=== PATIENT | female | born 1985 | race Caucasian/White ===

== ENCOUNTER 2017-09-24 19:34 | Emergency (ER) | payer SELFPAY ==
[2017-09-24] MEDS ORDERED: Clindamycin HCl 150 MG Cap PO ONE (20:39)
[2017-09-24] MEDS ORDERED: Clindamycin HCl 150 MG Cap ONE (20:39)
--- NOTE | 2017-09-24 20:42 | EDM.PDOC ---
ED HPI GENERAL MEDICAL PROBLEM - General Chief Complaint: Bite:Animal, Insect Stated Complaint: bug bite Time Seen by Provider: 09/24/17 19:45 Source of Information: Reports: Patient History Limitations: Reports: Altered Mental Status - History of Present Illness INITIAL COMMENTS - FREE TEXT/NARRATIVE: 32-year-old female presents to the emergency room with a bug bite or boil that had occurred just under her right breast. Patient states that she has had this for a couple days it was very painful and opened today. She reports the pain now seems to be better now that it is opened. She thinks this may have been a bug bite. She has no other complaints. She denies any fever, chills, shortness of breath or chest pain. Past medical history significant for bipolar disorder she takes Depakote for this. She has moved recently from [place] to live with her sister who has lived in [place] for about 3 years. She is somewhat a poor historian as she seems to be having flights of ideas. 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 She has smoked marijuana in the past but denies any current use of illicit drugs. Onset: Gradual Onset Date: 08/31/17 Duration: Day(s): Location: Reports: Chest Severity: Mild Improves with: Reports: None Worsens with: Reports: None Associated Symptoms: Reports: No Other Symptoms - Related Data Allergies Allergy/AdvReac Type Severity Reaction Status Date / Time acetaminophen [From Vicodin] Allergy Airway Verified 09/24/17 19:41 Tightness ciprofloxacin [From Cipro] Allergy Airway Verified 09/24/17 19:41 Tightness hydrocodone [From Vicodin] Allergy Airway Verified 09/24/17 19:41 Tightness Penicillins Allergy Airway Verified 09/24/17 19:41 Tightness Home Meds: Home Meds Divalproex Sodium [Depakote] 1,000 mg PO BID 09/24/17 [History] QUEtiapine [SEROquel] 600 mg PO BEDTIME 09/24/17 [History] Past Medical History Psychiatric History: Reports: Bipolar Immunologic History: Reports: None Oncologic (Cancer) History: Reports: Breast - Infectious Disease History Infectious Disease History: Reports: Chicken Pox - Past Surgical History Oncologic Surgical History: Reports: Mastectomy, Other (See Below) Other Oncologic Surgeries/Procedures: reconstruction of tom breasts Social & Family History - Tobacco Use Smoking Status *Q: Former Smoker Used Tobacco, but Quit: Yes Month/Year Tobacco Last Used: 2017 - Caffeine Use Caffeine Use: Reports: None - Recreational Drug Use Recreational Drug Use: No ED ROS GENERAL - Review of Systems Review Of Systems: See Below Constitutional: Denies: Fever, Chills HEENT: Reports: No Symptoms Respiratory: Denies: Shortness of Breath Cardiovascular: Denies: Chest Pain Endocrine: Reports: No Symptoms GI/Abdominal: Reports: No Symptoms : Reports: No Symptoms Musculoskeletal: Reports: No Symptoms Skin: Reports: Erythema, Wound (Underneath the right breast) Neurological: Reports: No Symptoms Psychiatric: Reports: Anxiety, Mood Lability Hematologic/Lymphatic: Reports: No Symptoms Immunologic: Reports: No Symptoms ED EXAM, ANIMAL BITE - Physical Exam Exam: See Below Exam Limited By: No Limitations General Appearance: Alert, WD/WN, No Apparent Distress Throat/Mouth: Normal Voice, No Airway Compromise Head: Atraumatic Neck: Normal Inspection, Supple Respiratory/Chest: No Respiratory Distress, Lungs Clear Cardiovascular: Regular Rate, Rhythm GI/Abdominal: Soft Extremities: Normal Inspection Neurological: Alert, Oriented, No Motor/Sensory Deficits Psychiatric: Anxious, Flat Affect Lymphadenopathy: Bilateral: No Adenopathy Lymphatic: No Adenopathy Course - Vital Signs Last Recorded V/S: Last Vital Signs Temp 96.9 F 09/24/17 20:22 Pulse 112 H 09/24/17 20:22 Resp 20 09/24/17 20:22 BP 138/69 09/24/17 20:22 Pulse Ox 95 09/24/17 20:22 - Orders/Labs/Meds Orders: Active Orders 24 hr Category Date Time Status CULTURE WOUND [RM] Stat Lab 09/24/17 20:11 Ordered Meds: Medications Discontinued Medications Generic Name Dose Route Start Last Admin Trade Name Freq PRN Reason Stop Dose Admin Clindamycin HCl Confirm 09/24/17 20:39 Cleocin Administered 09/24/17 20:40 Dose 1,200 mg .ROUTE .STK-MED ONE - Re-Assessments/Exams Free Text/Narrative Re-Assessment/Exam: 09/24/17 20:44 Culture of the wound underneath the right breast was obtained. Gram stain, anaerobic, aerobic cultures were taken Departure - Departure Time of Disposition: 20:44 Disposition: Home, Self-Care 01 Condition: Good Clinical Impression: Cellulitis Qualifiers: Site of cellulitis: trunk Site of cellulitis of trunk: chest wall Qualified Code(s): L03.313 - Cellulitis of chest wall Insect bite of breast, right Qualifiers: Encounter type: initial encounter Qualified Code(s): S20.161A - Insect bite ( nonvenomous) of breast, right breast, initial encounter - Discharge Information Instructions: Insect Bite, Adult, [id number] Referrals: Connie Moreno, [facility] [Primary Care Provider] - Forms: ED Department Discharge - My Orders Last 24 Hours: My Active Orders 09/24/17 20:11 CULTURE WOUND [RM] Stat - Assessment/Plan Last 24 Hours: My Active Orders 09/24/17 20:11 CULTURE WOUND [RM] Stat Assessment:: Cellulitis right chest wall just underneath the right breast Possible insect bite Plan: 1. Clindamycin 300 mg 3 times a day for 5 days 2. Cultures for Gram stain, anaerobic, aerobic were obtained. Results of these cultures should be within 48-72 hours. 3. You'll need to find a primary care and follow-up and Dylan to monitor this. You should follow-up this week. 4. Keep the bite clean with alcohol swabs and cover with a Band-Aid or gauze.
== END 2017-09-24 20:55 | disposition home or self-care (01) ==
LOC: KA.ED 19:34 → SUPCPDRO 19:34 → KA.ED 20:55
DX: L03.313 Cellulitis of chest wall (principal); S20.161A Insect bite (nonvenomous) of breast, right breast, initial encounter; W57.XXXA Bitten or stung by nonvenomous insect and other nonvenomous arthropods, initial encounter
CPT/HCPCS: 87070; 87205; 99283; A9270; 99282